=== PATIENT | female | born 1960 | race African-American/Black ===

== ENCOUNTER 2021-07-17 06:50 | Emergency (ER) | payer SELFPAY ==
[2021-07-17] MEDS ORDERED: SODIUM CHLORIDE 1,000 ML IV SCH (07:00)
[2021-07-17] MEDS ORDERED: MIDAZOLAM HCL 2 MG/2 ML SINGLE DOSE VIAL IVPUSH ONE ×2 (07:41→08:00)
[2021-07-17] MEDS ORDERED: ASPIRIN 325 MG TABLET PO ONE (07:56)
[2021-07-17] MEDS ORDERED: ATORVASTATIN CA 80 MG TABLET (FP) PO ONE (07:57)
[2021-07-17 08:14] VITALS: BP 199/102; PULSE 101; TEMP 98.5; BMI 25.0
[2021-07-17 08:52] LABS: INR 1.19 (0.83-1.09); PROTHROMBIN TIME (PATIENT) 13.7 SEC (9.7-13.0)
[2021-07-17 08:55] LABS: ACTIVATED PTT 30.8 SECONDS (25.2-36.5)
[2021-07-17 08:57] LABS: BASO % 0.6 % (0-2.0); EOS % 0.3 % (0-4.5); HEMATOCRIT 41.7 % (32.4-45.2); HEMOGLOBIN 14.2 GM/dL (10.7-15.3); MCH 34.6 pg (25.7-33.7); MEAN CELL VOLUME 101.6 fl (80-96); MEAN PLT VOLUME 8.5 fl (7.5-11.1); MONO % 10.5 % (3.8-10.2); NEUT % 52.6 % (42.8-82.8); PLATELET COUNT 246 10^3/uL (134-434); RDW 14.8 % (11.6-15.6); WHITE BLOOD COUNT 4.5 K/mm3 (4.0-10.0)
[2021-07-17 09:05] LABS: CHLORIDE 101 mmol/L (98-107); SODIUM 138 mmol/L (136-145)
[2021-07-17 09:07] LABS: ALBUMIN 3.2 g/dl (3.4-5.0); ANION GAP 9 MMOL/L (8-16); CO2 27 mmol/L (21-32)
[2021-07-17 09:09] LABS: BLOOD UREA NITROGEN 7.4 mg/dL (7-18); GLUCOSE,RANDOM 184 mg/dL (74-106)
[2021-07-17 09:10] LABS: SGPT/ALT 12 U/L (13-61)
[2021-07-17 09:11] LABS: CREATININE 0.8 mg/dL (0.55-1.3); SGOT/AST 18 U/L (15-37)
[2021-07-17 09:12] LABS: CHOLESTEROL 216 mg/dL (50-200); TOT PROT 7.3 g/dl (6.4-8.2)
[2021-07-17 09:13] LABS: LDL CHOLESTEROL (ONLY SJRH) 119 mg/dL (5-100); TRIGLYCERIDES 144 mg/dL (0-150)
[2021-07-17 09:14] LABS: BILIRUBIN,TOTAL 0.5 mg/dL (0.2-1)
[2021-07-17 09:15] LABS: ALK PHOS 109 U/L (45-117)
[2021-07-17 09:16] LABS: HDL CHOLESTEROL 67 mg/dL (40-60)
[2021-07-17 09:31] LABS: CALCIUM 8.2 mg/dL (8.5-10.1)
== END 2021-07-17 08:45 | disposition short-term general hospital (02) ==
LOC: JER 06:50
PROC: 3E033GC Introduction of Other Therapeutic Substance into Peripheral Vein, Percutaneous Approach (ICD-10-PCS; principal; 2021-07-17)
PROC: 3E033GC Introduction of Other Therapeutic Substance into Peripheral Vein, Percutaneous Approach (ICD-10-PCS; 2021-07-17)
DX: I63.9 Cerebral infarction, unspecified (principal); I21.09 ST elevation (STEMI) myocardial infarction involving other coronary artery of anterior wall; R40.4 Transient alteration of awareness
CPT/HCPCS: 36415; 70450-TC; 70496-TC; 70498-TC; 80053; 80061; 80307; 82550; 83036; 84484; 85025; 85610; 85730; 93005; 93010; 99291